=== PATIENT | female | born 1970 | race African-American/Black ===

== ENCOUNTER → 2022-03-15 | Outpatient (CLI) | payer OTHER ==
--- NOTE | 2022-03-17 02:16 | PCM.ECHO ---
APPROVED REPORT EXAM: Comprehensive 2D, Doppler, and color-flow Echocardiogram. Patient Location: OUT-PATIENT Indications Pre-Op Cardiac clearance 2D Dimensions LVOT Diameter 2.30 (1.8-2.4cm) LVEF(%) 54.33 (>50%) M-Mode Dimensions RVDd 0.55 (2.1-3.2cm) Left Atrium(MM) 4.05 (2.5-4.0cm) IVSd 0.70 (0.7-1.1cm) Aortic Root 3.25 (2.2-3.7cm) LVDd 5.75 (4.0-5.6cm) Aortic Cusp Exc 2.05 (1.5-2.0cm) PWd 0.70 (0.7-1.1cm) MV EPSS 2.61 (<0.5cm) IVSs 1.20 cm FS (%) 26.75 % LVDs 4.20 (2.0-3.8cm) ESV(Teich) 79.55 ml PWs 1.65 cm LVEF(%) 51.60 (>50%) Volumes Biplane 2D LV Volumes Biplane 2D LA Volumes LVEDv A4C 93.72 mL LA ESV Index LVESv A4C 42.80 mL Aortic Valve AoV Peak Faustino. 1.30 m/s AoV VTI 26.85 cm AO Peak GR. 7.15 mmHg AO Mean GR. 4.50 mmHg LVOT VTI 20.50 cm LVOT Peak Faustino. 0.96 m/s REGINA(VTI)/BSA 3.18 cm2/m2 REGINA (VTI) 3.18 cm2 Mitral Valve MV E Velocity 0.65m/s MR Peak Gr. 17.50mmHg MV A Velocity 0.85m/s TDI Lateral E' P. V 0.13m/s Medial E' P. V 0.10m/s Pulmonary Valve PV Peak Velocity 0.65m/s PV Peak Grad. 1.90mmHg RVOT VTI 15.30cm Tricuspid Valve TR P. Velocity 1.10m/s RAP ESTIMATE 10.00mmHg TR Peak Gr. 4.98mmHg RVSP 14.98mmHg LEFT VENTRICLE The left ventricle is normal size. The left ventricular systolic function is normal. The left ventricular ejection fraction is within the normal range. There is normal left ventricular wall thickness. There is normal LV segmental wall motion. The left ventricular diastolic function is normal. There is no ventricular septal defect visualized. No left ventricle thrombus noted on this study. LVEF is 50-55%. RIGHT VENTRICLE The right ventricle is normal size. The right ventricular systolic function is normal. There is normal right ventricular wall thickness. ATRIA The left atrium size is normal. The right atrium size is normal. The interatrial septum is intact with no evidence for an atrial septal defect. AORTIC VALVE The aortic valve is normal in structure. There is no aortic valvular stenosis. No aortic regurgitation is present. There is no aortic valvular vegetation. MITRAL VALVE The mitral valve is normal in structure. There is no mitral valve stenosis. Mild mitral regurgitation. There is no evidence of mitral valve vegetations. TRICUSPID VALVE The tricuspid valve is normal in structure. There is no tricuspid valve stenosis. Mild tricuspid regurgitation. There is no tricuspid valve vegetations. PULMONIC VALVE Pulmonic valve is not well visualized. There is no pulmonic valvular stenosis. There is no pulmonic valvular regurgitation. GREAT VESSELS The aortic root is normal in size. Pulmonary artery is not well visualized. Aortic arch is not well visualized. The IVC is normal in size and collapses >50% with inspiration. PERICARDIUM There is no pericardial effusion. There is no pleural effusion. Other Information Study Quality: Fair <Conclusion> The left ventricular systolic function is normal. LVEF is 50-55%. Mild mitral regurgitation. Mild tricuspid regurgitation. Electronically signed by : VERONIKA SAGASTUME. 03/17/2022 02:16:25
== END | disposition home or self-care (01) ==
LOC: RAD 09:23
PROVIDERS: ATTEND Nurse Practitioner Family
DX: Z01.810 Encounter for preprocedural cardiovascular examination (principal); I08.1 Rheumatic disorders of both mitral and tricuspid valves
CPT/HCPCS: 93306